=== PATIENT | female | born 1970 | race Caucasian/White ===

== ENCOUNTER 2017-03-05 18:18 | Emergency (ER) | payer OTHER ==
[~2017-03-05] VITALS: Ht 165.1 cm; Wt 161.2 kg
[~2017-03-05 18:18] MED LIST: BCTCR EXT; CEPH500C PO; SULF800T23 PO
[2017-03-05 18:26] VITALS: TEMP 36.7; Ht 165.1 cm; Wt 161.2 kg
[2017-03-05] MEDS ORDERED: SODIUM CHLORIDE 0.9% 1000ML 1,000 ML IV STA (19:08)
[2017-03-05] MEDS ORDERED: ALBUTEROL HFA 8 GM INHALER INH ONE (19:30)
[2017-03-05 19:32] LABS: BASO % 0.2 %; BASO ABS # 0.01 K/uL (0-0.2); EOS % 1.4 %; EOS ABS # 0.07 K/uL (0-0.5); HEMATOCRIT 40.1 % (37-47); IG# 0.02 K/uL (0.00-0.02); MEAN CELL VOLUME 87.9 fL (80-100); MEAN CORPUSCULAR HEMOGLOBIN 30.7 pg (25-34); MEAN CORPUSCULAR HGB CONC 34.9 g/dl (32-36); MEAN PLATELET VOLUME 9.4 fL (7.4-10.4); MONO % 9.2 %; MONO ABS # 0.46 K/uL (0.11-0.59); NEUT % 66.8 %; NEUT ABS # 3.33 K/uL (1.4-6.5); PLATELET COUNT 173 K/uL (130-400); RED CELL DISTRIBUTION WIDTH CV 13.3 % (11.5-14.5); RED CELL DISTRIBUTION WIDTH SD 43.1 fL (36.4-46.3); WHITE BLOOD COUNT 4.99 K/uL (4.8-10.8)
[2017-03-05 19:58] LABS: ALBUMIN 3.3 gm/dl (3.4-5.0); CALCIUM 8.7 mg/dl (8.5-10.1); CREATININE 0.89 mg/dl (0.60-1.20); POTASSIUM 3.9 mmol/L (3.5-5.1)
[2017-03-05] MEDS ORDERED: SULF800T23 PO (19:59)
[2017-03-05 20:00] LABS: TOTAL PROTEIN 7.6 gm/dl (6.4-8.2)
[2017-03-05 20:44] LABS: INFLUENZA B ANTIGEN Neg for Influ B (NEG)
--- NOTE | 2017-03-05 21:04 | EMERGENCY ROOM VISIT NOTE ---
History Report prepared by Lars: Melani Anthony Under the Supervision of: Dr. Laurel Zendejas D.O. First contact with patient: 18:53 Chief Complaint: PAIN (GENERALIZED) Stated Complaint: MUSCLE SPASMS History of Present Illness The patient is a 46 year old female who presents to the Emergency Room with complaints of constant generalized pain starting today. The patient states that she went to her doctor 6 days ago for cellulitis and she was put on Keflex. She states that four days ago she spiked a fever of 100-101. She reports that she went to the [facility] three days ago. She states that they are unsure why she had the fever, but x-rayed her knees and lungs. She states that the results were normal. She reports that she had chills that were the worst she has ever had. The patient reports that her blood pressure was high and they changed her to Bactrim. She states that yesterday her fever broke, but today she has been having muscle cramps. The patient complains of nasal congestion, loss of appetite, constipation, and diarrhea. The patient denies nausea. The patient notes that she has had cellulitis in her legs before. She notes that her LNMP is currently occurring. Source of History: patient Onset: today Position: other (global) Quality: cramping Timing: constant Associated Symptoms: + fevers, + chills, + diarrhea, No nausea Note: The patient complains of nasal congestion, loss of appetite, and constipation. Review of Systems See HPI for pertinent positives & negatives. A total of 10 systems reviewed and were otherwise negative. Past Medical & Surgical Medical Problems: (1) History of cellulitis Family History Patient reports no known family medical history. Social History Smoking Status: Current Every Day Smoker Marital Status: single Housing Status: lives with family Occupation Status: employed Current/Historical Medications Scheduled Sulfa/Trimethoprim (Bactrim Ds 800MG/160MG), 1 TAB PO BID Allergies Coded Allergies: No Known Allergies (Verified , 03/05/17) Physical Exam Vital Signs Date Time Temp Pulse Resp B/P (MAP) Pulse Ox O2 Delivery O2 Flow Rate FiO2 03/05/17 19:55 75 18 152/91 97 Room Air 03/05/17 18:26 36.7 89 22 169/101 96 Room Air Physical Exam GENERAL: alert, well appearing, well nourished, no distress, non-toxic EYE EXAM: normal conjunctiva, PERRL and EOM's grossly intact OROPHARYNX: no exudate, no erythema, lips, buccal mucosa, and tongue normal and mucous membranes are dry NECK: supple, no nuchal rigidity, no adenopathy, non-tender LUNGS: Decreased breath sounds. Scattered expiratory wheezing. No rhonchi or rales. Normal chest wall mechanics HEART: no murmurs, S1 normal and S2 normal ABDOMEN: obese abdomen, abdomen soft, non-tender, normo-active bowel sounds, no masses, no rebound or guarding. BACK: Back is symmetrical on inspection and there is no deformity, no midline tenderness, no CVA tenderness. SKIN: no rashes and no bruising UPPER EXTREMITIES: upper extremities are grossly normal. LOWER EXTREMITIES: No pitting edema. NEURO EXAM: Normal sensorium, cranial nerves II-XII grossly intact, normal speech, no gross weakness of arms, no gross weakness of legs. Medical Decision & Procedures Laboratory Results 03/05/17 19:22 Red Blood Count 4.56, Mean Corpuscular Volume 87.9, Mean Corpuscular Hemoglobin 30.7, Mean Corpuscular Hemoglobin Concent 34.9, Mean Platelet Volume 9.4, Neutrophils (%) (Auto) 66.8, Lymphocytes (%) (Auto) 22.0, Monocytes (%) (Auto) 9.2, Eosinophils (%) (Auto) 1.4, Basophils (%) (Auto) 0.2, Neutrophils # (Auto) 3.33, Lymphocytes # (Auto) 1.10, Monocytes # (Auto) 0.46, Eosinophils # (Auto) 0.07, Basophils # (Auto) 0.01 03/05/17 19:22 Test 03/05/17 19:22 03/05/17 19:53 White Blood Count 4.99 K/uL (4.8-10.8) Red Blood Count 4.56 M/uL (4.2-5.4) Hemoglobin 14.0 g/dL (12.0-16.0) Hematocrit 40.1 % (37-47) Mean Corpuscular Volume 87.9 fL (80-100) Mean Corpuscular Hemoglobin 30.7 pg (25-34) Mean Corpuscular Hemoglobin Concent 34.9 g/dl (32-36) Platelet Count 173 K/uL (130-400) Mean Platelet Volume 9.4 fL (7.4-10.4) Neutrophils (%) (Auto) 66.8 % Lymphocytes (%) (Auto) 22.0 % Monocytes (%) (Auto) 9.2 % Eosinophils (%) (Auto) 1.4 % Basophils (%) (Auto) 0.2 % Neutrophils # (Auto) 3.33 K/uL (1.4-6.5) Lymphocytes # (Auto) 1.10 K/uL (1.2-3.4) Monocytes # (Auto) 0.46 K/uL (0.11-0.59) Eosinophils # (Auto) 0.07 K/uL (0-0.5) Basophils # (Auto) 0.01 K/uL (0-0.2) RDW Standard Deviation 43.1 fL (36.4-46.3) RDW Coefficient of Variation 13.3 % (11.5-14.5) Immature Granulocyte % (Auto) 0.4 % Immature Granulocyte # (Auto) 0.02 K/uL (0.00-0.02) Anion Gap 5.0 mmol/L (3-11) Est Creatinine Clear Calc Drug Dose 125.7 ml/min Estimated GFR () 91.4 Estimated GFR (Non- 78.8 BUN/Creatinine Ratio 10.1 (10-20) Calcium Level 8.7 mg/dl (8.5-10.1) Magnesium Level 2.1 mg/dl (1.8-2.4) Total Bilirubin 0.3 mg/dl (0.2-1) Aspartate Amino Transf (AST/SGOT) 17 U/L (15-37) Alanine Aminotransferase (ALT/SGPT) 23 U/L (12-78) Alkaline Phosphatase 73 U/L (45-117) Total Creatine Kinase 82 U/L (26-192) Total Protein 7.6 gm/dl (6.4-8.2) Albumin 3.3 gm/dl (3.4-5.0) Globulin 4.3 gm/dl (2.5-4.0) Albumin/Globulin Ratio 0.8 (0.9-2) Influenza Type A Antigen Neg for Influ A (NEG) Influenza Type B Antigen Neg for Influ B (NEG) Laboratory results per my review. Medications Administered Medications (Trade) Dose Ordered Sig/Griselda Route Start Time Stop Time Status Last Admin Dose Admin Sodium Chloride 1,000 ml @ 999 mls/hr Q1H1M STAT IV 03/05/17 19:08 03/05/17 20:08 DC 03/05/17 19:47 999 MLS/HR Albuterol (Ventolin Hfa Inhaler) 2 puffs NOW ONCE INH 03/05/17 19:30 03/05/17 19:31 DC 03/05/17 19:47 2 PUFFS ECG Indication: other (medication reaction) Rate (beats per minute): 78 Rhythm: sinus rhythm Findings: no acute ischemic change, other (normal axis, normla intervals, low voltage throughout) ED Course 1856: The patient was evaluated in room C2B. A complete history and physical exam was performed. 1907: Ordered NSS 1000 ml @ 999 mls/hr IV. 1929: Ordered Albuterol 2 puffs INH. 2024: I interpreted the patient's EKG at this time. 2052: Upon reevaluation, the patient is feeling better. I discussed the findings and the treatment plan with the patient. She verbalizes agreement and understanding. The patient was discharged home. Medical Decision The patient is a 46 year old female who presents to the Emergency Room with complaints of constant generalized pain starting today. Differential diagnoses include dehydration, renal failure, electrolyte abnormality, medication ADR, rhabdomyolysis. Medication Reconcilliation Current Medication List: was personally reviewed by me Blood Pressure Screening Patient's blood pressure: Elevated blood pressure Blood pressure disposition: Referred to PCP Impression Primary Impression: Dehydration Additional Impression: Cramp and spasm Scribe Attestation The scribe's documentation has been prepared under my direction and personally reviewed by me in its entirety. I confirm that the note above accurately reflects all work, treatment, procedures, and medical decision making performed by me. Departure Information Dispostion Home / Self-Care Referrals No Doctor, Assigned (PCP) Forms HOME CARE DOCUMENTATION FORM, IMPORTANT VISIT INFORMATION, WORK / SCHOOL INSTRUCTIONS Patient Instructions My [facility] [place] Additional Instructions Please drink more water and less Mountain Dew. Please finish your course of antibiotics. Please keep your follow-up appointment with your family doctor. Please continue to monitor for any other changes. If you have any other new or worsening symptoms, develop recurrent spasm or cramps, develop numbness or tingling, weakness of an arm or leg, fevers, worsening cellulitis, you've any other new concerns, please return the emergency room. Problem Qualifiers
[2017-03-05 21:17] VITALS: BP 148/72; PULSE 87; O2SAT 97
== END 2017-03-05 21:18 | disposition home or self-care (01) ==
LOC: C.EDB 18:20 → C.EDC 21:18
DX: E86.0 Dehydration (principal); R25.2 Cramp and spasm; F17.210 Nicotine dependence, cigarettes, uncomplicated